=== PATIENT | female | born 1985 | race Caucasian/White ===

== ENCOUNTER 2016-11-07 21:22 | Emergency (ER) | payer OTHER ==
[2016-11-07 21:28] VITALS: RESP 18
--- NOTE | 2016-11-07 22:05 | ED ---
Back Pain HPI - General Chief Complaint: Back Pain/Injury Stated Complaint: Back Pain Time Seen by Provider: 11/07/16 21:51 Source: patient, RN notes reviewed Limitations: no limitations - History of Present Illness Initial Comments: This is a 31-year-old female who states she slipped on some stairs and fell down about 4 stairs 4 days ago when she was wearing slippery socks. She states she impacted the stairs with the right posterior aspect of her mid chest wall. She was seen in urgent care clinic placed on Naprosyn but it is not helping the pain. She also states she has increased pain with deep breathing it is somewhat short of breath. She does admit that she is a smoker. She denies any cough or phlegm production fevers chills sweats any other injuries no loss of function to her upper or lower extremities. Patient states that the pain is about 8-1/2/10 in severity in spite of her Naprosyn. MD Complaint: back pain, back injury, fall - Related Data Home Medications Medication Instructions Recorded Confirmed ALPRAZolam [Xanax] 0.5 mg PO TID PRN 11/07/16 11/07/16 ARIPiprazole [Abilify] 30 mg PO DAILY 11/07/16 11/07/16 Benztropine (Unknown Dose) 1 tab PO DAILY 11/07/16 11/07/16 Calcium Carbonate/Vitamin D3 1 tab PO DAILY 11/07/16 11/07/16 [Calcium 500-Vit D3 600 Tablet] Celexa (Unknown Dose) 1 tab PO DAILY 11/07/16 11/07/16 Levothyroxine Sodium [Synthroid] 125 mcg PO DAILY 11/07/16 11/07/16 Norgestimate-Ethinyl Estradiol 1 tab PO DAILY 11/07/16 11/07/16 [Sprintec 28 Day Tablet] Topiramate [Topamax] 50 mg PO BID 11/07/16 11/07/16 Previous Rx's Medication Instructions Recorded Cyclobenzaprine [Flexeril] 10 mg PO TID #14 tab 11/07/16 Hydrocodone/Acetaminophen [Rogers 1 each PO Q6HR PRN #20 tab 11/07/16 5-325] Allergies Allergy/AdvReac Type Severity Reaction Status Date / Time Penicillins Allergy Rash/Hives Verified 11/07/16 22:20 Sulfa (Sulfonamide Allergy Rash/Hives Verified 11/07/16 22:20 Antibiotics) codeine AdvReac Nausea & Verified 11/07/16 22:20 Vomiting Review of Systems ROS Statement: Those systems with pertinent positive or pertinent negative responses have been documented in the HPI. ROS Other: All systems not noted in ROS Statement are negative. Past Medical History Past Medical History: GERD/Reflux Additional Past Medical History / Comment(s): thyroid cancer. History of Any Multi-Drug Resistant Organisms: None Reported Additional Past Surgical History / Comment(s): thyroid Past Psychological History: Anxiety, Bipolar, Depression, PTSD Smoking Status: Current every day smoker Past Drug Use History: Marijuana General Exam - General Exam Comments Initial Comments: This is a well-developed well-nourished awake alert oriented 3 female demonstrate a [place] Coma Scale of 15 Limitations: no limitations General appearance: alert, anxious Head exam: Present: atraumatic, normocephalic, normal inspection Eye exam: Present: normal appearance, PERRL, EOMI. Absent: scleral icterus, conjunctival injection, periorbital swelling ENT exam: Present: normal exam, mucous membranes moist Neck exam: Present: normal inspection, full ROM. Absent: tenderness, meningismus, lymphadenopathy Respiratory exam: Present: normal lung sounds bilaterally, chest wall tenderness (There is palpation over the mid right posterior ribs with some ecchymosis noted over the same area. No spinous tenderness or spinous process tenderness no scapular tenderness. Decreased breath sounds with no definite step-off crepitation or evidence of pneumothorax.). Absent: respiratory distress, wheezes, rales, rhonchi, stridor Cardiovascular Exam: Present: regular rate, normal rhythm, normal heart sounds. Absent: systolic murmur, diastolic murmur, rubs, gallop, clicks GI/Abdominal exam: Present: soft, normal bowel sounds. Absent: distended, tenderness, guarding, rebound, rigid Extremities exam: Present: normal inspection, full ROM, normal capillary refill. Absent: tenderness, pedal edema, joint swelling, calf tenderness Back exam: Present: full ROM, other (As above). Absent: CVA tenderness (R), CVA tenderness (L), muscle spasm, paraspinal tenderness, vertebral tenderness Neurological exam: Present: alert, oriented X3, CN II-XII intact Psychiatric exam: Present: normal affect, normal mood Skin exam: Present: warm, dry, intact Course Vital Signs 11/07/16 21:24 Temperature 98.4 F Pulse Rate 66 Respiratory 18 Rate Blood Pressure 116/56 O2 Sat by Pulse 97 Oximetry - Reevaluation(s) Reevaluation #1: 11/07/16 22:05 We did discuss the risks of smoking and the need for cessation. Conversation lasted 3.1 minutes Medical Decision Making - Medical Decision Making Did discuss findings with the patient the presentation is consistent with bruised ribs/chest wall contusion patient will be placed on a different pain medication she states tramadol does not agree with her medications and placed on a short course of opiate pain medication as well as muscle relaxers. She can tolerate Vicodin and Rogers. - Radiology Data Radiology results: image reviewed (I did review the imaging and see no evidence of pneumothorax or fracture. Report is pending) Disposition Clinical Impression: Contusion of rib on right side, Chest wall contusion Disposition: HOME SELF-CARE Condition: Good Instructions: Rib Contusion (ED) Prescriptions: Cyclobenzaprine [Flexeril] 10 mg PO TID #14 tab Hydrocodone/Acetaminophen [Rogers 5-325] 1 each PO Q6HR PRN #20 tab PRN Reason: Pain
[2016-11-07 23:12] VITALS: BP 109/54; PULSE 60; TEMP 98.5
--- NOTE | 2016-11-07 23:28 | XR ---
EXAMINATION TYPE: XR ribs RT w pa chest xray DATE OF EXAM: 11/07/2016 10:13 PM COMPARISON: NONE HISTORY: Fell down the stairs. Chest pain. TECHNIQUE: 3 views FINDINGS: Heart and mediastinum are normal. Lungs are clear. There is no sign of pleural effusion or pneumothorax. The right ribs appear intact. IMPRESSION: Normal chest. Normal right ribs.
== END 2016-11-07 23:10 | disposition home or self-care (01) ==
LOC: EC 21:22
DX: S20.211A Contusion of right front wall of thorax, initial encounter (principal); F31.9 Bipolar disorder, unspecified; F17.200 Nicotine dependence, unspecified, uncomplicated; Z79.899 Other long term (current) drug therapy; Z79.3 Long term (current) use of hormonal contraceptives; Z88.0 Allergy status to penicillin; Z88.2 Allergy status to sulfonamides; Z88.5 Allergy status to narcotic agent; Z85.850 Personal history of malignant neoplasm of thyroid; Z98.890 Other specified postprocedural states; W10.9XXA Fall (on) (from) unspecified stairs and steps, initial encounter
CPT/HCPCS: 99283

== ENCOUNTER → 2017-10-21 | Outpatient (CLI) | payer OTHER ==
--- NOTE | 2017-10-21 12:53 | MR ---
EXAMINATION TYPE: MR brain and iac wo/w con DATE OF EXAM: 10/21/2017 COMPARISON: NONE HISTORY: Hearing Loss Left side TECHNIQUE: There is image degradation and limited exam secondary to motion artifact. Multiplanar, multisequence images of the brain and brainstem is performed without and with IV contras t, utilizing 8.5 mL intravenous Gadavist . FINDINGS: Diffusion weighted images demonstrate no evidence of a recent infarct or other diffusion ab normality. Changes of chronic sinusitis noted. Sella turcica has a normal appearance. Tiny subcentimeter Thornwa ldt cyst within the posterior nasopharynx. There is no cerebellopontine angle mass or acoustic schwannoma. Mastoid air cells are clear. The brain volume is age appropriate. Midline structures demonstrate normal morphology. The craniocervical junction appears within normal limits. Post contrast images demonstrate no abnormal enhancement. The dural venous sinuses appear pa tent. The visualized sinuses are clear and the globes are intact. IMPRESSION: Exam is limited by motion artifact. 1. No acute process. No cerebellopontine angle mass or acoustic schwannoma.
== END | disposition home or self-care (01) ==
LOC: RADMRIMAIN 10:20
PROVIDERS: ATTEND Otolaryngology Otolaryngic Allergy
DX: H91.8X2 Other specified hearing loss, left ear (principal)
CPT/HCPCS: 70553; A9581

== ENCOUNTER 2017-10-28 14:14 | Inpatient (IN) | payer MEDICAID, OTHER ==
--- NOTE | 2017-10-28 14:58 | ED ---
General Adult HPI - General Chief complaint: Psychiatric Symptoms Stated complaint: Mental Health Time Seen by Provider: 10/28/17 14:32 Source: patient, RN notes reviewed Mode of arrival: EMS Limitations: no limitations - History of Present Illness Initial comments: Patient's a 32-year-old female who presents emergency room today who is petitioned by the [employer]. Patient states that she was upset earlier today and was having thoughts for herself. She states her father called 911. She states she was holding a knife to her right forearm. She did not cut herself. She admits that she has a psychiatric history has been hospitalized in the past. She states that police brought her here to the hospital and petitioned her for psychiatric evaluation. Patient does admit that she did take some pills. She states not swollen she was also switched probably spit them out. Patient denies any recent fever, chills, shortness of breath, chest pain, back pain, abdominal pain, headaches or visual changes, or any other complaints. - Related Data Home Medications Medication Instructions Recorded Confirmed ALPRAZolam [Xanax] 0.5 mg PO BID PRN 11/07/16 10/28/17 ARIPiprazole [Abilify] 30 mg PO DAILY 11/07/16 11/07/16 Calcium Carbonate/Vitamin D3 1 tab PO DAILY 11/07/16 10/28/17 [Calcium 500-Vit D3 600 Tablet] Celexa (Unknown Dose) 1 tab PO DAILY 11/07/16 11/07/16 Levothyroxine Sodium [Synthroid] 125 mcg PO DAILY 11/07/16 11/07/16 Topiramate [Topamax] 50 mg PO BID 11/07/16 11/07/16 Gabapentin [Neurontin] 300 mg PO BID 10/28/17 10/28/17 Norgestimate-Ethinyl Estradiol 1 tab PO DAILY 10/28/17 10/28/17 [Ortho Tri-Cyclen 28 Tablet] Allergies Allergy/AdvReac Type Severity Reaction Status Date / Time aspartame Allergy Unknown Verified 10/28/17 14:46 Penicillins Allergy Rash/Hives Verified 10/28/17 14:46 red dye Allergy Unknown Verified 10/28/17 14:46 Sulfa (Sulfonamide Allergy Rash/Hives Verified 10/28/17 14:46 Antibiotics) codeine AdvReac Nausea & Verified 10/28/17 14:46 Vomiting Review of Systems ROS Statement: Those systems with pertinent positive or pertinent negative responses have been documented in the HPI. ROS Other: All systems not noted in ROS Statement are negative. Past Medical History Past Medical History: GERD/Reflux Additional Past Medical History / Comment(s): thyroid cancer. History of Any Multi-Drug Resistant Organisms: None Reported Additional Past Surgical History / Comment(s): thyroid Past Psychological History: Anxiety, Bipolar, Depression, PTSD Smoking Status: Current every day smoker Past Alcohol Use History: None Reported Past Drug Use History: Marijuana General Exam - General Exam Comments Initial Comments: General: The patient is awake and alert, in no distress, and does not appear acutely ill. Eye: Pupils are equal, round and reactive to light, extra-ocular movements are intact. No nystagmus. There is normal conjunctiva bilaterally. No signs of icterus. Ears, nose, mouth and throat: There are moist mucous membranes and no oral lesions. Neck: The neck is supple, there is no tenderness or JVD. Cardiovascular: There is a regular rate and rhythm. No murmur, rub or gallop is appreciated. Respiratory: Lungs are clear to auscultation, respirations are non-labored, breath sounds are equal. No wheezes, stridor, rales, or rhonchi. Musculoskeletal: Normal ROM, no tenderness. Strength 5/5. Sensation intact. Pulses equal bilaterally 2+. Neurological: A&O x 3. CN II-XII intact, There are no obvious motor or sensory deficits. Coordination appears grossly intact. Speech is normal. Skin: Skin is warm and dry and no rashes or lesions are noted. Psychiatric: Cooperative Limitations: no limitations Course Vital Signs 10/28/17 14:17 Temperature 99.0 F Pulse Rate 71 Respiratory 18 Rate Blood Pressure 128/81 O2 Sat by Pulse 100 Oximetry EKG Findings - EKG Comments: EKG Findings:: EKG performed at 1511: Shows normal sinus rhythm at 69 bpm. MN interval 120. QRS 82. QT/QTc 420/450. No acute ST changes. Medical Decision Making - Medical Decision Making Patient's been seen here in emergency room the recommend admission. Patient's x- ray reviewed and shows no acute cardiopulmonary process. From prior exam but suspected mold posterior lateral right sixth and seventh rib fractures. Patient does have tenderness over the right lateral aspect of the ribs. Patient does admit that she had an old rib fracture from possibly one year ago. Patient will be admitted for further psychiatric evaluation. - Lab Data Result diagrams: 10/28/17 15:02 10/28/17 15:02 Lab Results 10/28/17 10/28/17 10/28/17 Range/Units 15:02 15:02 15:02 WBC 16.4 H (3.8-10.6) k/uL RBC 4.78 (3.80-5.40) m/uL Hgb 15.4 (11.4-16.0) gm/dL Hct 46.1 H (34.0-46.0) % MCV 96.4 (80.0-100.0) fL MCH 32.1 (25.0-35.0) pg MCHC 33.3 (31.0-37.0) g/dL RDW 12.2 (11.5-15.5) % Plt Count 232 (150-450) k/uL Neutrophils % 82 % Lymphocytes % 11 % Monocytes % 5 % Eosinophils % 1 % Basophils % 0 % Neutrophils # 13.5 H (1.3-7.7) k/uL Lymphocytes # 1.8 (1.0-4.8) k/uL Monocytes # 0.9 (0-1.0) k/uL Eosinophils # 0.2 (0-0.7) k/uL Basophils # 0.0 (0-0.2) k/uL Sodium 144 (137-145) mmol/L Potassium 3.7 (3.5-5.1) mmol/L Chloride 112 H (98-107) mmol/L Carbon Dioxide 19 L (22-30) mmol/L Anion Gap 13 mmol/L BUN 11 (7-17) mg/dL Creatinine 0.90 (0.52-1.04) mg/dL Est GFR (CKD-EPI)AfAm >90 (>60 ml/min/1.73 sqM) Est GFR (CKD-EPI)NonAf 85 (>60 ml/min/1.73 sqM) Glucose 77 (74-99) mg/dL Calcium 9.7 (8.4-10.2) mg/dL Salicylates <1.0 mg/dL Urine Opiates Screen Not Detected (NotDetected) Ur Oxycodone Screen Not Detected (NotDetected) Urine Methadone Screen Not Detected (NotDetected) Ur Propoxyphene Screen Not Detected (NotDetected) Acetaminophen <10.0 ug/mL Ur Barbiturates Screen Not Detected (NotDetected) U Tricyclic Antidepress Not Detected (NotDetected) Ur Phencyclidine Scrn Not Detected (NotDetected) Ur Amphetamines Screen Not Detected (NotDetected) U Methamphetamines Scrn Not Detected (NotDetected) U Benzodiazepines Scrn Not Detected (NotDetected) Urine Cocaine Screen Not Detected (NotDetected) U Marijuana (THC) Screen Detected H (NotDetected) Disposition Clinical Impression: Suicidal ideation Disposition: TRANSFER TO PSYCH HOSP/UNIT Referrals: Flip Garcia MD [Primary Care Provider] - 1-2 days
[2017-10-28 15:11] LABS: Basophils % (A) 0 %; Eosinophils # (A) 0.2 k/uL (0-0.7); Eosinophils % (A) 1 %; HCT 46.1 % (34.0-46.0); HGB 15.4 gm/dL (11.4-16.0); Lymphocytes # (A) 1.8 k/uL (1.0-4.8); Lymphocytes % (A) 11 %; MCH 32.1 pg (25.0-35.0); MCHC 33.3 g/dL (31.0-37.0); MCV 96.4 fL (80.0-100.0); Mean Platelet Volume 8.1; Monocytes # (A) 0.9 k/uL (0-1.0); Monocytes % (A) 5 %; Neutrophils # (A) 13.5 k/uL (1.3-7.7); Neutrophils % (A) 82 %; Platelet Count 232 k/uL (150-450); RBC 4.78 m/uL (3.80-5.40); RDW 12.2 % (11.5-15.5); WBC 16.4 k/uL (3.8-10.6)
[2017-10-28 15:25] LABS: Acetaminophen <10.0 ug/mL; Anion Gap 13 mmol/L; Blood Urea Nitrogen 11 mg/dL (7-17); Calcium 9.7 mg/dL (8.4-10.2); Carbon Dioxide 19 mmol/L (22-30); Chloride 112 mmol/L (98-107); Glucose 77 mg/dL (74-99); Potassium 3.7 mmol/L (3.5-5.1); Salicylate <1.0 mg/dL; Sodium 144 mmol/L (137-145)
[2017-10-28 15:32] LABS: Amphetamine Screen,Urine Not Detected (NotDetected); Barbiturate Screen,Urine Not Detected (NotDetected); Benzodiazepines Screen,Urine Not Detected (NotDetected); Cocaine Screen,Urine Not Detected (NotDetected); Methadone Screen, Urine Not Detected (NotDetected); Opiate Screen,Urine Not Detected (NotDetected); Oxycodone Screen, Urine Not Detected (NotDetected); Phencyclidine Screen,Urine Not Detected (NotDetected); Tricyclic Antidepressant,Urine Not Detected (NotDetected); Urn Cannabinoid Scrn Detected (NotDetected)
[2017-10-28] MEDS ORDERED: LORazepam 1 MG TAB PO STA ×2 (15:40→17:38)
--- NOTE | 2017-10-28 18:16 | XR ---
EXAMINATION TYPE: XR chest 2V DATE OF EXAM: 10/28/2017 COMPARISON: Chest x-ray from November 07, 2016. HISTORY: Right anterior rib pain. TECHNIQUE: Frontal and lateral views of the chest are obtained. FINDINGS: There is no focal air space opacity, pleural effusion, or pneumothorax seen. The cardiac silhouette size is within normal limits. There are posterior fracture deformities right sixth and sev enth ribs new from prior exam but suspected old in age. IMPRESSION: No acute cardiopulmonary process. New from prior exam but suspected old posterior latera l right sixth and seventh rib fractures. Correlate clinically.
[2017-10-28] MEDS ORDERED: ACETAMINOPHEN TAB 500 MG TAB PO STA (18:32)
[2017-10-28] MEDS ORDERED: ACETAMINOPHEN TAB 325 MG TAB PO PRN (18:49)
[2017-10-28] MEDS ORDERED: MAGNESIUM HYDROXIDE 2,400 MG/10 ML CUP PO PRN (18:49)
[2017-10-28] MEDS ORDERED: MAG HYDROX/AL HYDROX/SIMETH 30 ML CUP PO PRN (18:49)
[2017-10-28] MEDS ORDERED: LORazepam 2 MG/ML INJ IM PRN (18:57)
[2017-10-28 19:18] LABS: Appearance,Urine Cloudy (Clear); Bacteria,Urine Occasional /hpf; Bilirubin,Urine Negative (Negative); Blood,Urine Negative (Negative); Color,Urine Yellow; Glucose,Urine (UA) Negative (Negative); Hyaline Casts,Urine 6 /lpf (0-2); Ketones,Urine Negative (Negative); Leukocyte Esterase,Urine Negative (Negative); Mucus,Urine Rare /hpf; Nitrite,Urine Negative (Negative); PH, Urine 5.5 (5.0-8.0); Protein,Urine Negative (Negative); Specific Gravity,Urine 1.008 (1.001-1.035); Squamous Epithelial Cell,Urine 20 /hpf (0-4); Urobilinogen,Urine <2.0 mg/dL (<2.0); WBC,Urine 1 /hpf (0-5)
[2017-10-28 19:30] VITALS: RESP 16
[2017-10-28] MEDS: ARIPiprazole 10 MG TAB PO SCH (20:02)
[2017-10-29] MEDS: LORazepam 1 MG TAB PO PRN ×2 (06:38→16:06)
[2017-10-29] MEDS: IBUPROFEN 400 MG TAB PO PRN ×2 (06:39→18:24)
[2017-10-29] MEDS ORDERED: ZIPRASIDONE 20 MG VIAL IM ONE ×3 (09:27→18:28)
[2017-10-29] MEDS: ZIPRASIDONE 20 MG VIAL IM PRN ×2 (09:28→18:28)
[2017-10-29] MEDS: NICOTINE 14MG/24HR PATCH TRANSDERM SCH ×2 (09:52→16:05)
[2017-10-29] MEDS: ARIPiprazole 10 MG TAB PO SCH ×2 (09:52→16:05)
[2017-10-29] MEDS: CALCIUM CARB-VIT D 500MG-200UN 1 EACH TAB PO SCH ×2 (09:52→16:05)
[2017-10-29] MEDS: NORGESTIMATE ETHINYL ESTRADIOL PO SCH (09:53)
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
--- NOTE | 2017-10-29 16:45 | P.CONS ---
History of Present Illness - Reason for Consult Recommendations regarding thyroid medications - History of Present Illness 32-year-old is admitted to psychiatric floor for suicidal ideation. Patient is tearful crying hitting her rib cage so that she doesn't need to stay in the psychiatric floor either can go home are can be admitted to medical floor. Patient had history of thyroidectomy with highly elevated TSH patient says she does take Thyroid medication a regular basis. She is complaining severe pain in the right rib cage area. Patient had a chest x-ray did show rib fractures which appears to be older. Patient does have leukocytosis which is which may be reactive due to stress doesn't have any signs or symptoms of infection he is essentially within normal lives chest x-ray did not show any pneumonic process. Review of Systems REVIEW OF SYSTEMS: CONSTITUTIONAL: No fever, no malaise, no fatigue. HEENT: No recent visual problems or hearing problems. Denied any sore throat. CARDIOVASCULAR: No chest pain, orthopnea, PND, no palpitations, no syncope. PULMONARY: No shortness of breath, no cough, no hemoptysis. Complain of pain in the rib cage area GASTROINTESTINAL: No diarrhea, no nausea, no vomiting, no abdominal pain. Normoactive bowel sounds. NEUROLOGICAL: No headaches, no weakness, no numbness. HEMATOLOGICAL: Denies any bleeding or petechiae. GENITOURINARY: Denies any burning micturition, frequency, or urgency. MUSCULOSKELETAL/RHEUMATOLOGICAL: Denies any joint pain, swelling, or any muscle pain. ENDOCRINE: Denies any polyuria or polydipsia. The rest of the 14-point review of systems is negative. Past Medical History Past Medical History: GERD/Reflux Additional Past Medical History / Comment(s): thyroid cancer. History of Any Multi-Drug Resistant Organisms: None Reported Additional Past Surgical History / Comment(s): thyroid Past Psychological History: Anxiety, Bipolar, Depression, PTSD Smoking Status: Current every day smoker Past Alcohol Use History: None Reported Past Drug Use History: Marijuana Medications and Allergies Home Medications Medication Instructions Recorded Confirmed Type ALPRAZolam [Xanax] 0.5 mg PO BID PRN 11/07/16 10/28/17 History ARIPiprazole [Abilify] 30 mg PO DAILY 11/07/16 11/07/16 History Calcium Carbonate/Vitamin D3 1 tab PO DAILY 11/07/16 10/28/17 History [Calcium 500-Vit D3 600 Tablet] Celexa (Unknown Dose) 1 tab PO DAILY 11/07/16 11/07/16 History Levothyroxine Sodium [Synthroid] 125 mcg PO DAILY 11/07/16 11/07/16 History Topiramate [Topamax] 50 mg PO BID 11/07/16 11/07/16 History Gabapentin [Neurontin] 300 mg PO BID 10/28/17 10/28/17 History Norgestimate-Ethinyl Estradiol 1 tab PO DAILY 10/28/17 10/28/17 History [Ortho Tri-Cyclen 28 Tablet] Allergies Allergy/AdvReac Type Severity Reaction Status Date / Time aspartame Allergy Unknown Verified 10/28/17 14:46 Penicillins Allergy Rash/Hives Verified 10/28/17 14:46 red dye Allergy Unknown Verified 10/28/17 14:46 Sulfa (Sulfonamide Allergy Rash/Hives Verified 10/28/17 14:46 Antibiotics) codeine AdvReac Nausea & Verified 10/28/17 14:46 Vomiting Physical Exam Vitals: Vital Signs Temp Pulse Pulse Resp BP BP Pulse Ox 10/29/17 06:18 98.5 F 67 16 112/59 10/28/17 19:29 103 H 16 146/76 100 10/28/17 19:14 97.8 F 67 18 129/57 98 Intake and Output 10/29/17 10/29/17 10/29/17 06:59 14:59 22:59 Other: Weight 84.5 kg PHYSICAL EXAMINATION: GENERAL: The patient is alert and oriented x3, not in any acute distress. Well developed, well nourished. HEENT: Pupils are round and equally reacting to light. EOMI. No scleral icterus. No conjunctival pallor. Normocephalic, atraumatic. No pharyngeal erythema. No thyromegaly. CARDIOVASCULAR: S1 and S2 present. No murmurs, rubs, or gallops. PULMONARY: Chest is clear to auscultation, no wheezing or crackles. There is mild tenderness upon palpation of posterior right rib cage area ABDOMEN: Soft, nontender, nondistended, normoactive bowel sounds. No palpable organomegaly. MUSCULOSKELETAL: No joint swelling or deformity. EXTREMITIES: No cyanosis, clubbing, or pedal edema. NEUROLOGICAL: Gross neurological examination did not reveal any focal deficits. SKIN: No rashes. Results CBC & Chem 7: 10/28/17 15:02 10/28/17 15:02 Labs: Abnormal Lab Results - Last 24 Hours (Table) 10/28/17 10/28/17 Range/Units 15:02 15:22 TSH 12.700 H (0.465-4.680) mIU/L Urine Appearance Cloudy H (Clear) Ur Squamous Epith Cells 20 H (0-4) /hpf Urine Bacteria Occasional H (None) /hpf Hyaline Casts 6 H (0-2) /lpf Urine Mucus Rare H (None) /hpf Microbiology - Last 24 Hours (Table) 10/28/17 15:22 Urine Culture - Preliminary Urine,Clean Catch Assessment and Plan Plan: -Hypothyroidism: Unsure whether patient is competent are not patient had history of thyroid cancer post total thyroidectomy normally these patients will require high dose of thyroid medication because of which counseling that patient is compliant with her medication or increase the dose of levothyroxine to 175 g. --Right rib fractures appear to be older patient may have incited recurrent injury patient is already on appropriate medications for that which is nonsteroidal anti-inflammatories because of uncontrolled pain from that counseling was provided not to hit her rib cage again and patient will be given tramadol as well but as this is also a nonsteroidal anti-inflammatory should be continued on long-term basis. -Gastroesophageal reflux disease patient was started on Pepcid because of nonsteroidal anti-inflammatory is she is taking. -Nicotine use and marijuana use
[2017-10-29] MEDS: GABAPENTIN 300 MG CAP PO SCH (21:11)
[2017-10-29] MEDS: FAMOTIDINE 20 MG TAB PO SCH (21:11)
[2017-10-29] MEDS: traMADol 50 MG TAB PO SCH (21:11)
[2017-10-30] MEDS: LEVOTHYROXINE 88 MCG TAB PO SCH (05:40)
[2017-10-30] MEDS: NICOTINE 14MG/24HR PATCH TRANSDERM SCH (08:18)
[2017-10-30] MEDS: FAMOTIDINE 20 MG TAB PO SCH ×2 (08:18→21:10)
[2017-10-30] MEDS: ARIPiprazole 10 MG TAB PO SCH (08:18)
[2017-10-30] MEDS: LORazepam 1 MG TAB PO PRN (08:18)
[2017-10-30] MEDS: CALCIUM CARB-VIT D 500MG-200UN 1 EACH TAB PO SCH (08:18)
[2017-10-30] MEDS: GABAPENTIN 300 MG CAP PO SCH ×2 (08:18→21:10)
[2017-10-30] MEDS: traMADol 50 MG TAB PO SCH ×3 (08:19→21:10)
[2017-10-30] MEDS: NORGESTIMATE ETHINYL ESTRADIOL PO SCH ×2 (08:53→11:26)
[2017-10-30] MEDS ORDERED: LEVOTHYROXINE 125 MCG TAB PO SCH (09:00)
[2017-10-30 09:28] LABS: HCT 45.1 % (34.0-46.0); HGB 14.8 gm/dL (11.4-16.0); MCH 32.1 pg (25.0-35.0); MCHC 32.8 g/dL (31.0-37.0); MCV 97.7 fL (80.0-100.0); Mean Platelet Volume 7.9; Platelet Count 283 k/uL (150-450); RBC 4.61 m/uL (3.80-5.40); RDW 12.3 % (11.5-15.5); WBC 10.6 k/uL (3.8-10.6)
[2017-10-30 09:46] LABS: Calcium 9.5 mg/dL (8.4-10.2); Potassium 4.3 mmol/L (3.5-5.1)
[2017-10-30] MEDS: CHOLECALCIFEROL 1,000 UNIT TAB PO SCH (11:26)
[2017-10-30] MEDS ORDERED: LORazepam 0.5 MG TAB PO PRN (11:28)
[2017-10-30] MEDS ORDERED: ARIPiprazole 400 MG VIAL (NO CHARGE) IM ONE (12:00)
--- NOTE | 2017-10-30 13:25 | P.PN ---
Progress Note - Text Progress Note Date: 10/30/17 Interval History: Patient is a 32-year-old female who was seen today. Patient reports that she was having bad thoughts that tell her to do things prior to coming into the hospital. She states she does not think she had been taking her Abilify. She states the bad thoughts tell her to hurt others and herself. She reports no auditory hallucinations and refers to these as bad thoughts. Patient states when she was taking the Abilify the bad thoughts go away and she states that she does quite well when she is on here patient was also taking Topamax and Celexa. She states she used the Xanax infrequently. Patient reports no longer having bad thoughts, still becomes tearful when asking when she can be discharged. Patient states that she did sleep last evening. Patient states that she is still anxious and needs something to calm her nerves. Mental Status: Appearance/Attitude: Patient is appropriately dressed, makes eye contact and was cooperative. Behavior: Patient did not display any psychomotor agitation or retardation, becoming tearful throughout the interview when discussing her discharge Speech/Language: Patient's speech was spontaneous of normal volume and rhythm and she was coherent Thought Process: Patient is goal-directed there is no evidence of loose association or flight of ideas. Thought Content: Patient denies auditory or visual hallucination and describes having bad thoughts that tell her to hurt herself or others. She states that she was hearing these when she took the overdose at home. She states they have decreased in intensity since her restart of Abilify in the hospital. Patient states that Abilify in the past has worked well for her. She reports sleeping and eating well. Suicidal/Homicidal Ideation: Patient denies any current suicidal or homicidal ideation Sensorium/Cognition: Patient is alert and oriented to person, place, and time and her recent and remote memory are grossly intact Mood/Affect: Patient's mood is labile, her affect is appropriate to her mood Insight/Judgment: Patient's insight and judgment are fair Assessment: Patient was able to sit and cooperate during the interview, she did become tearful when requesting discharge. Patient and I discussed her response to Abilify in the past which she states had been good and we discussed the medication as well as the use of long-acting injectable Abilify which the patient was agreeable to try. Patient and I discussed not restarting the Topamax her Celexa to see if the Abilify on its own would be enough of a mood stabilizer. Patient reports her bad thoughts have decreased and she is no longer feeling suicidal. Patient states that she is anxious and we reviewed her use of Xanax as an outpatient. Patient has been attending groups and activities. She apologized for her behavior with me yesterday and has not had any further outbursts today. Plan: Patient Abilify will be increased to 20 mg a day and she will receive Abilify Maintenna 300 mg IM today and I discussed with her the need to stay on oral medication for 14 days after the injection. Patient was agreeable to this I will decrease her Ativan to 0.5 mg on an as-needed basis orally and we discussed trying Vistaril 25 mg every 6 hours as needed for her complaints of anxiety. I discussed not restarting Topamax and Celexa to see if the Abilify would stabilize her mood sufficiently. She was agreeable to this plan. Patient continues to require hospitalization to further stabilize her mood.
[2017-10-30] MEDS: IBUPROFEN 400 MG TAB PO PRN (13:30)
[2017-10-30] MEDS: hydrOXYzine PAMOATE 25 MG CAP PO PRN (14:19)
[2017-10-31] MEDS: IBUPROFEN 400 MG TAB PO PRN (04:39)
[2017-10-31] MEDS: LEVOTHYROXINE 88 MCG TAB PO SCH (05:43)
[2017-10-31 06:39] VITALS: TEMP 98.1
[2017-10-31] MEDS: traMADol 50 MG TAB PO SCH (08:25)
[2017-10-31] MEDS: CALCIUM CARB-VIT D 500MG-200UN 1 EACH TAB PO SCH (08:27)
[2017-10-31] MEDS: NICOTINE 14MG/24HR PATCH TRANSDERM SCH (08:27)
[2017-10-31] MEDS: GABAPENTIN 300 MG CAP PO SCH ×2 (08:27→21:41)
[2017-10-31] MEDS: FAMOTIDINE 20 MG TAB PO SCH ×2 (08:27→21:41)
[2017-10-31] MEDS: NORGESTIMATE ETHINYL ESTRADIOL PO SCH (09:17)
[2017-10-31] MEDS: IBUPROFEN 600 MG TAB PO PRN ×2 (11:31→19:47)
[2017-10-31] MEDS: CHOLECALCIFEROL 1,000 UNIT TAB PO SCH (11:31)
--- NOTE | 2017-10-31 12:24 | P.PN ---
Progress Note - Text Progress Note Date: 10/31/17 Interval History: Patient is a 32-year-old female who was seen today, she reports feeling much better stated that she had written a list of goals for herself for today. Patient states that she is no longer having thoughts to herself or anyone else. She states that her tearful episodes have decreased. She reports sleeping well last evening. Patient continues to complain of some rib discomfort but states that she knows that after the last time she broke her ribs that it took a while for the pain to go away. Patient reported relief using Vistaril for her anxiety yesterday. She reports no side effects from the Abilify. Patient feels that her mood is much more stable Mental Status: Appearance/Attitude: Patient is appropriately dressed, makes good eye contact and was cooperative. Behavior: Patient did not exhibit any psychomotor agitation or retardation and was only tearful on several occasions during the interview Speech/Language: Patient was spontaneous speech is of normal volume and rhythm and she was coherent. Thought Process: Patient was goal-directed there was no evidence of loose association or flight of ideas. Thought Content: Patient denied auditory or visual hallucinations and states that the bad thoughts to herself or others are no longer there. No other delusional or paranoid ideation was elicited. Patient states that she is sleeping and eating well. She states that she is feeling more stable, less frequent crying episodes. She stated she made goals today for herself to be more positive and states that she has learned some new coping skills in groups. Suicidal/Homicidal Ideation: Patient denies any current suicidal or homicidal ideation. Sensorium/Cognition: Patient is alert and oriented to person, place, and time and her recent and remote memory are grossly intact. Mood/Affect: patient's mood is less labile, she was tearful only on several occasions today and her affect is more appropriate Insight/Judgment: patient's insight and judgment are improving Assessment: Patient states that she deferred her hearing yesterday, states that she feels much better on the Abilify, the dad thoughts have disappeared and her mood is more stable. She and I discussed her use of marijuana and the need to stop, she stated her parents called her and told her that if she did not stop they would move away and have no further contact with her. Patient stated that this was a great motivation for her to stop and we also discussed concerns regarding her partner who does use marijuana. Patient reported that she was learning new coping skills here and was open to a referral for therapy [facility]. Patient reported no side effects from the Abilify. I encouraged the patient to continue to try the Vistaril for her anxiety versus using the Ativan. Plan: patient will continue on Abilify 20 mg for a total of 14 days after having received Abilify Maintenna 300 mg yesterday. Patient will have her tramadol changed to on an as-needed basis, her Motrin dose was increased as well as the frequency to use on an as-needed basis for her rib pain. Patient was also encouraged to try to use the Vistaril versus the Ativan for her anxiety. Patient and I discussed a discharge tomorrow. In team treatment meeting I recommended that continue mental health refer her for DBT/CBT to improve the patient's coping strategies. Patient was agreeable with discharge tomorrow.
[2017-10-31] MEDS: hydrOXYzine PAMOATE 25 MG CAP PO PRN (15:27)
[2017-10-31] MEDS: traMADol 50 MG TAB PO PRN (15:35)
[2017-11-01] MEDS: traMADol 50 MG TAB PO PRN ×2 (00:05→08:31)
[2017-11-01 01:33] VITALS: BP 122/75; PULSE 68
[2017-11-01] MEDS: LEVOTHYROXINE 88 MCG TAB PO SCH (06:21)
[2017-11-01] MEDS: IBUPROFEN 600 MG TAB PO PRN (06:54)
[2017-11-01] MEDS: CALCIUM CARB-VIT D 500MG-200UN 1 EACH TAB PO SCH (08:26)
[2017-11-01] MEDS: FAMOTIDINE 20 MG TAB PO SCH (08:26)
[2017-11-01] MEDS: NICOTINE 14MG/24HR PATCH TRANSDERM SCH (08:26)
[2017-11-01] MEDS: GABAPENTIN 300 MG CAP PO SCH (08:26)
[2017-11-01] MEDS: NORGESTIMATE ETHINYL ESTRADIOL PO SCH (08:26)
--- NOTE | 2017-11-01 09:58 | P.DS ---
Providers Date of admission: 10/28/17 18:46 Expected date of discharge: 11/01/17 Attending physician: Skylar Andres MD Consults: 10/28/17 18:49 Consult Physician Routine Consulting Provider: Angel Aragon Consult Reason/Comments: H&P, with medical follow up Do you want consulting provider notified?: Yes, Notify in am Primary care physician: Flip [facility] Course: Discharge Diagnosis: Schizoaffective disorder, bipolar type Reason for Admission: Patient is a 32-year-old female who was brought in by the police after taking an overdose of pills and attempting to cut her wrists with a knife. Patient states that she took an overdose of pills, her Neurontin because she and her were arguing and she felt out of control and stated that the only way to control herself was to take an overdose of pills. Patient states the police were called by her father. Patient states she also had a knife and was going to cut her wrists. Patient states that she told the police to "get the fuck out of my house". She states that she threw an ashtray at the end that they tased her. Patient states that she's been taking her medications that are controlled by her but does not know the dose of her medication. She stated that she's been taking Topamax as a mood stabilizer, an unknown dose of Abilify and unknown dose of Celexa and is on Neurontin for fibromyalgia and Xanax that she usually takes 1-2 a day. Patient states that she seen by [facility] and last saw the psychiatrist in August and saw her saddle maker in early October. She states that those times she had been compliant with her medication and was not having any symptoms. Patient states that she is hearing voices that are telling her to get out of her here, to go to the doors to get out of here and scratch on the doors until her fingers bleed to get out. She states that she is hearing voices telling her to hurt me unless I let her out. She states that she feels paranoid because I'm trying to hurt her and the reason would be "for glee" because I'm sick and twisted. She states her father is an idiot because he called the police. Patient intermittently during the interview would begin crying hysterically pleading to leave the hospital stating that she was suicidal yesterday but isn' t today and doesn't need to be here. Patient when I would tell her that she was not leaving today become angry using profanity, swearing at me to let her leave. Patient was a difficult historian as she would not answer most questions with any elaborative history stating that she doesn't know how long she's been treated and has been diagnosed with bipolar disorder, anxiety and schizophrenia. Patient was unable to tell me any current symptoms other than that she had been in an argument yesterday and was suicidal to control her out- of-control behavior. Patient states that she is attempted suicide 3 times in the past for cutting herself and overdosing. Mental status on Admission: Appearance/Attitude: Patient is dressed in a hospital gown, makes intermittent eye contact and is superficially cooperative Behavior: Patient did not display any psychomotor retardation throughout the interview she would have episodes where she begin crying hysterically demanding to be discharged, pleading to be discharged at one point lying on the floor and grabbing my ankles pleading to be discharged, when she was told that this would not occur the patient would become angry using profanity Speech/Language: Patient's speech was spontaneous, normal volume and rhythm and she was coherent Thought Process: Patient was goal-directed but not elaborative on her responses , mostly focused on pleading for her discharge. There is no evidence of loose association or flight of ideas Thought Content: Patient reported that she was hearing voices telling her to get out of the hospital, to hurt me if I didn't let her leave and denied any visual hallucinations. Patient states that she was paranoid because she felt I was trying to hurt her for glee because I was sick and twisted. Patient did not appear to be responding to internal stimuli. Patient states that she took the overdose at home because she was arguing with her and felt out of control and that was the only way to get in control. Suicidal/Homicidal Ideation: Patient states that she is not currently suicidal, she took the overdose as stated above and tried to cut her wrists yesterday she denied any current homicidal ideation Sensorium/Cognition: Patient is alert and oriented to person, place, and time and her recent and remote memory are grossly intact Mood/Affect: Patient's mood is labile, with episodes of anger and profanity and her affect is appropriate to her mood Insight/Judgment: Patient's insight and judgment are limited Hospital Course: Patient was admitted on an involuntary basis, routine observation was ordered as well as group and activity therapy. Patient had routine laboratory studies and a medical consultation. Patient was continued on her medications for her medical problems and due to an elevated TSH her Synthroid dose was increased. Patient was begun on Abilify at 10 mg and titrated to a maximum dose of 20 mg. Her Topamax and Celexa were discontinued. Patient required IM medication initially, was taking her Abilify orally. Patient became more cooperative, less angry and no further episodes of verbally abusive behavior. Patient began to attend groups and activities and participated appropriately. Patient and I discussed long-acting Abilify and she was agreeable to this. Patient also deferred her hearing. Patient was given Abilify 300 mg long-acting injection on October 30. Patient reports that she was no longer having bad thoughts telling her to hurt herself or others, she was sleeping. For the patient's pain secondary to being tased she was placed on Motrin and tramadol. Patient reported that her pain was improving but continues to complain of right rib pain in an area where she had injured her ribs in the past. Patient continued to improve, her behavior was appropriate, she reported no further bad thoughts to harm people or others and was no longer feeling suicidal. She and I had discussed her use of marijuana and she stated that her parents told her that if she returned to using they would move away from her and not have any contact with her. Patient felt that she would be able to return to live with her partner and remain sober from marijuana. Patient reported no side effects from the Abilify. Allergies aspartame Allergy (Verified 10/28/17 14:46) Unknown Penicillins Allergy (Verified 10/28/17 14:46) Rash/Hives red dye Allergy (Verified 10/28/17 14:46) Unknown Sulfa (Sulfonamide Antibiotics) Allergy (Verified 10/28/17 14:46) Rash/Hives codeine Adverse Reaction (Verified 10/28/17 14:46) Nausea & Vomiting Laboratory Last Values WBC 10.6 k/uL (3.8-10.6) 10/30/17 08:42 RBC 4.61 m/uL (3.80-5.40) 10/30/17 08:42 Hgb 14.8 gm/dL (11.4-16.0) 10/30/17 08:42 Hct 45.1 % (34.0-46.0) 10/30/17 08:42 MCV 97.7 fL (80.0-100.0) 10/30/17 08:42 MCH 32.1 pg (25.0-35.0) 10/30/17 08:42 MCHC 32.8 g/dL (31.0-37.0) 10/30/17 08:42 RDW 12.3 % (11.5-15.5) 10/30/17 08:42 Plt Count 283 k/uL (150-450) 10/30/17 08:42 Neutrophils % 82 % 10/28/17 15:02 Lymphocytes % 11 % 10/28/17 15:02 Monocytes % 5 % 10/28/17 15:02 Eosinophils % 1 % 10/28/17 15:02 Basophils % 0 % 10/28/17 15:02 Neutrophils # 13.5 k/uL (1.3-7.7) H 10/28/17 15:02 Lymphocytes # 1.8 k/uL (1.0-4.8) 10/28/17 15:02 Monocytes # 0.9 k/uL (0-1.0) 10/28/17 15:02 Eosinophils # 0.2 k/uL (0-0.7) 10/28/17 15:02 Basophils # 0.0 k/uL (0-0.2) 10/28/17 15:02 Sodium 143 mmol/L (137-145) 10/30/17 08:42 Potassium 4.3 mmol/L (3.5-5.1) 10/30/17 08:42 Chloride 106 mmol/L (98-107) 10/30/17 08:42 Carbon Dioxide 25 mmol/L (22-30) 10/30/17 08:42 Anion Gap 12 mmol/L 10/30/17 08:42 BUN 14 mg/dL (7-17) 10/30/17 08:42 Creatinine 1.04 mg/dL (0.52-1.04) 10/30/17 08:42 Est GFR (CKD-EPI)AfAm 83 (>60 ml/min/1.73 sqM) 10/30/17 08:42 Est GFR (CKD-EPI)NonAf 72 (>60 ml/min/1.73 sqM) 10/30/17 08:42 Glucose 107 mg/dL (74-99) H 10/30/17 08:42 Calcium 9.5 mg/dL (8.4-10.2) 10/30/17 08:42 TSH 12.700 mIU/L (0.465-4.680) H 10/28/17 15:02 Urine Color Yellow 10/28/17 15:22 Urine Appearance Cloudy (Clear) H 10/28/17 15:22 Urine pH 5.5 (5.0-8.0) 10/28/17 15:22 Ur Specific [place] 1.008 (1.001-1.035) 10/28/17 15:22 Urine Protein Negative (Negative) 10/28/17 15:22 Urine Glucose (UA) Negative (Negative) 10/28/17 15:22 Urine Ketones Negative (Negative) 10/28/17 15:22 Urine Blood Negative (Negative) 10/28/17 15:22 Urine Nitrite Negative (Negative) 10/28/17 15:22 Urine Bilirubin Negative (Negative) 10/28/17 15:22 Urine Urobilinogen <2.0 mg/dL (<2.0) 10/28/17 15:22 Ur Leukocyte Esterase Negative (Negative) 10/28/17 15:22 Urine WBC 1 /hpf (0-5) 10/28/17 15:22 Ur Squamous Epith Cells 20 /hpf (0-4) H 10/28/17 15:22 Urine Bacteria Occasional /hpf (None) H 10/28/17 15:22 Hyaline Casts 6 /lpf (0-2) H 10/28/17 15:22 Urine Mucus Rare /hpf (None) H 10/28/17 15:22 Urine HCG, Qual Not Detected (Not Detectd) 10/28/17 15:22 Salicylates <1.0 mg/dL 10/28/17 15:02 Urine Opiates Screen Not Detected (NotDetected) 10/28/17 15:02 Ur Oxycodone Screen Not Detected (NotDetected) 10/28/17 15:02 Urine Methadone Screen Not Detected (NotDetected) 10/28/17 15:02 Ur Propoxyphene Screen Not Detected (NotDetected) 10/28/17 15:02 Acetaminophen <10.0 ug/mL 10/28/17 15:02 Ur Barbiturates Screen Not Detected (NotDetected) 10/28/17 15:02 U Tricyclic Antidepress Not Detected (NotDetected) 10/28/17 15:02 Ur Phencyclidine Scrn Not Detected (NotDetected) 10/28/17 15:02 Ur Amphetamines Screen Not Detected (NotDetected) 10/28/17 15:02 U Methamphetamines Scrn Not Detected (NotDetected) 10/28/17 15:02 U Benzodiazepines Scrn Not Detected (NotDetected) 10/28/17 15:02 Urine Cocaine Screen Not Detected (NotDetected) 10/28/17 15:02 U Marijuana (THC) Screen Detected (NotDetected) H 10/28/17 15:02 Discharge Mental Status: Appearance/Attitude: Patient was casually dressed, made good eye contact and was cooperative. Behavior: Patient did not display any psychomotor agitation or retardation. Speech/Language: Patient's speech was spontaneous of normal volume and rhythm and she was coherent. Thought Process: Patient was goal-directed there is no evidence of loose associations or flight of ideas. Thought Content: Patient denied any auditory or visual hallucinations and stated she was no longer having bad thoughts telling her to hurt herself or others. Patient behavior was in better control and she felt that her mood was much more stable. She reported that she was sleeping and eating well. Patient discussed learning new coping skills in the groups and stated that she was trying to focus on positive things. Patient also stated that she was planning to discontinue her use of marijuana. Suicidal/Homicidal Ideation: Patient denied any current suicidal or homicidal ideation. Sensorium/Cognition: Patient was alert and oriented to person, place, and time and her recent and remote memory were grossly intact. Mood/Affect: Patient's mood was much more stable, there were no episodes of tearfulness or crying today and her affect was appropriate Insight/Judgment: Patient's insight and judgment are adequate Risk Assessment: Patient's risk for self harm is moderate should she be noncompliant, return to using drugs Discharge Plan: Patient will return to live with her partner, she will follow- up with [facility], patient will continue on Abilify 20 mg until November 13. Patient next injection of Abilify Maintenna 300 mg is due on November 27. Patient will also continue on Vistaril 25 mg every 6 hours when necessary for anxiety. Patient will be given prescriptions for both Pepcid and Motrin as well as for the increased dose of Synthroid. Patient has sufficient Neurontin, calcium, vitamin D3 and will continue on her control pills. Patient was encouraged to be compliant with medication, become compliant with follow-up appointments. Patient was encouraged to avoid any alcohol or drugs and she will discontinue her use of Xanax. Patient also will be given a prescription for a repeat TSH in one month. Patient Condition at Discharge: Stable Plan - Discharge Summary New Discharge Prescriptions: New ARIPiprazole [Abilify] 20 mg PO DAILY #12 tab ARIPiprazole [Abilify Maintena] 300 mg IM QMONTH #1 vial Famotidine [Pepcid] 20 mg PO BID #28 tab hydrOXYzine PAMOATE [Vistaril] 25 mg PO Q6HR PRN #56 cap PRN Reason: Anxiety Ibuprofen [Motrin] 600 mg PO QID PRN #56 tab PRN Reason: Pain Levothyroxine Sodium [Synthroid] 176 mcg PO DAILY@0630 #56 tab Continue Calcium Carbonate/Vitamin D3 [Calcium 500-Vit D3 600 Tablet] 1 tab PO DAILY Gabapentin [Neurontin] 300 mg PO BID Norgestimate-Ethinyl Estradiol [Ortho Tri-Cyclen 28 Tablet] 1 tab PO DAILY Cholecalciferol (Vitamin D3) [Vitamin D3] 2,000 unit PO DAILY Discontinued Topiramate [Topamax] 50 mg PO BID ARIPiprazole [Abilify] 30 mg PO HS ALPRAZolam [Xanax] 0.5 mg PO BID PRN PRN Reason: Anxiety Topiramate [Topamax] 25 mg PO BID Levothyroxine Sodium [Synthroid] 112 mcg PO DAILY Citalopram Hydrobromide [CeleXA] 40 mg PO DAILY Discharge Medication List Calcium Carbonate/Vitamin D3 [Calcium 500-Vit D3 600 Tablet] 1 tab PO DAILY [History] Gabapentin [Neurontin] 300 mg PO BID 10/28/17 [History] Norgestimate-Ethinyl Estradiol [Ortho Tri-Cyclen 28 Tablet] 1 tab PO DAILY 10/28 [History] Cholecalciferol (Vitamin D3) [Vitamin D3] 2,000 unit PO DAILY 10/30/17 [History] ARIPiprazole [Abilify Maintena] 300 mg IM QMONTH #1 vial 11/01/17 [Rx] ARIPiprazole [Abilify] 20 mg PO DAILY #12 tab 11/01/17 [Rx] Famotidine [Pepcid] 20 mg PO BID #28 tab 11/01/17 [Rx] Ibuprofen [Motrin] 600 mg PO QID PRN #56 tab 11/01/17 [Rx] Levothyroxine Sodium [Synthroid] 176 mcg PO DAILY@0630 #56 tab 11/01/17 [Rx] hydrOXYzine PAMOATE [Vistaril] 25 mg PO Q6HR PRN #56 cap 11/01/17 [Rx] Follow up Appointment(s)/Referral(s): [facility] [Outside] - 11/02/17 2:00 pm (11/02/17 at 2pm with Connie 11/21/[address] Garibay ) Flip Garcia MD [Primary Care Provider] - 1-2 days Activity/Diet/Wound Care/Special Instructions: Pt is to follow up with outpatient in regards to her TSH it was 12.7 here and synthroid was increased to 175mcg daily during this admission. Activity and diet as tolerated. Avoid the use of street drugs and alcohol. Remove all firearms from the home. Take all medications as prescribed. Follow up with your Primary Care Physician in one to two days. When you are in need of refills on your medications please contact your medical provider and/or your outpatient psychiatrist to have this done. Please go to the scheduled outpatient appointment for aftercare. If symptoms return or become worse call the crisis line and/ or go the nearest emergency room for an evaluation. l Discharge Disposition: HOME SELF-CARE
[2017-11-01] MEDS: CHOLECALCIFEROL 1,000 UNIT TAB PO SCH (11:52)
== END 2017-11-01 13:27 | disposition home or self-care (01) | DRG 885 ==
LOC: EC 14:14 → 3MHU 18:46
PROVIDERS: ADMIT Psychiatry & Neurology Psychiatry; ATTEND Psychiatry & Neurology Psychiatry
DX: F25.0 Schizoaffective disorder, bipolar type (principal); R45.851 Suicidal ideations; D72.829 Elevated white blood cell count, unspecified; F12.90 Cannabis use, unspecified, uncomplicated; F43.10 Post-traumatic stress disorder, unspecified; F41.9 Anxiety disorder, unspecified; K21.9 Gastro-esophageal reflux disease without esophagitis; F17.200 Nicotine dependence, unspecified, uncomplicated; E28.2 Polycystic ovarian syndrome; M79.7 Fibromyalgia; H91.92 Unspecified hearing loss, left ear; Z62.810 Personal history of physical and sexual abuse in childhood; Z85.850 Personal history of malignant neoplasm of thyroid; Z79.899 Other long term (current) drug therapy; Z88.5 Allergy status to narcotic agent; Z88.2 Allergy status to sulfonamides; Z91.048 Other nonmedicinal substance allergy status; Z91.5 Personal history of self-harm; Z98.890 Other specified postprocedural states; Z79.3 Long term (current) use of hormonal contraceptives
CPT/HCPCS: 36415; 71046; 80048; 80306; 81001; 81025; 82075; 83520; 84443; 85025; 85027; 87086; 93005; 99285

== ENCOUNTER 2020-06-15 05:32 | Emergency (ER) | payer OTHER ==
[2020-06-15 05:42] VITALS: TEMP 98
[2020-06-15] MEDS ORDERED: CEPHALEXIN 500MG STARTER PACK 4 CAP BTL PO STA (05:43)
[2020-06-15] MEDS ORDERED: CEPHALEXIN 500 MG CAP PO STA (05:43)
[2020-06-15] MEDS ORDERED: LIDOCAINE 1%-EPI 1:100,000 20 ML VIAL SQ STA (05:43)
[2020-06-15] MEDS ORDERED: DIPH,PERTUS(ACELL)TETVAC-LF 0.5 ML VIAL IM ONE (05:43)
[2020-06-15] MEDS ORDERED: traMADol 50 MG STARTER PACK 3 TAB BTL PO STA (05:44)
[2020-06-15] MEDS ORDERED: traMADol 50 MG TAB PO STA (05:44)
--- NOTE | 2020-06-15 05:47 | ED ---
Wound/Laceration HPI - General Chief Complaint: Wound/Laceration Stated Complaint: Arm lac Source: patient, EMS, RN notes reviewed, old records reviewed Mode of arrival: EMS Limitations: no limitations - History of Present Illness Initial Comments: This is a 35-year-old female DF for evaluation patient Dese for evaluation of a fall trip and fall after waking up today she fell forward landing on fish tank fish tank was without Fish ground no water. Patient has no other injuries from this fall she sustained a laceration to her right wrist patient And had bleeding controlled prior to EMS arrival EMS brings patient in patient is moderately anxious secondary to both pain and the whole incident altogether. -: minutes(s) Extremity Location: Right: Wrist Place: home Patient Tetanus UTD: No Context: accidental Associated Symptoms: pain, loss of feeling/numbness - Related Data Home Medications Medication Instructions Recorded Confirmed Calcium Carbonate/Vitamin D3 1 tab PO DAILY 11/07/16 10/28/17 [Calcium 500-Vit D3 600 Tablet] Gabapentin [Neurontin] 300 mg PO BID 10/28/17 10/30/17 Norgestimate-Ethinyl Estradiol 1 tab PO DAILY 10/28/17 10/30/17 [Ortho Tri-Cyclen 28 Tablet] Cholecalciferol (Vitamin D3) 2,000 unit PO DAILY 10/30/17 10/30/17 [Vitamin D3] Previous Rx's Medication Instructions Recorded ARIPiprazole patients own 300 mg IM QMONTH #1 vial 11/01/17 [Abilify Maintena] ARIPiprazole [Abilify] 20 mg PO DAILY #12 tab 11/01/17 Famotidine [Pepcid] 20 mg PO BID #28 tab 11/01/17 Ibuprofen [Motrin] 600 mg PO QID PRN #56 tab 11/01/17 Levothyroxine Sodium [Synthroid] 176 mcg PO DAILY@0630 #56 tab 11/01/17 hydrOXYzine pamoate [Vistaril] 25 mg PO Q6HR PRN #56 cap 11/01/17 Allergies Allergy/AdvReac Type Severity Reaction Status Date / Time aspartame Allergy Unknown Verified 06/15/20 05:42 Penicillins Allergy Rash/Hives Verified 06/15/20 05:42 red dye Allergy Unknown Verified 06/15/20 05:42 Sulfa (Sulfonamide Allergy Rash/Hives Verified 06/15/20 05:42 Antibiotics) codeine AdvReac Nausea & Verified 06/15/20 05:42 Vomiting Review of Systems ROS Statement: Those systems with pertinent positive or pertinent negative responses have been documented in the HPI. ROS Other: All systems not noted in ROS Statement are negative. Past Medical History Past Medical History: GERD/Reflux, Thyroid Disorder Additional Past Medical History / Comment(s): thyroid cancer. History of Any Multi-Drug Resistant Organisms: None Reported Additional Past Surgical History / Comment(s): thyroid Past Psychological History: Anxiety, Bipolar, Depression, PTSD Smoking Status: Current every day smoker Past Alcohol Use History: Occasional Past Drug Use History: Marijuana General Exam Limitations: no limitations General appearance: alert, in no apparent distress Head exam: Present: atraumatic, normocephalic, normal inspection Eye exam: Present: normal appearance, PERRL, EOMI. Absent: scleral icterus, conjunctival injection, periorbital swelling ENT exam: Present: normal exam, mucous membranes moist Neck exam: Present: normal inspection. Absent: tenderness, meningismus, lymphadenopathy Respiratory exam: Present: normal lung sounds bilaterally. Absent: respiratory distress, wheezes, rales, rhonchi, stridor Cardiovascular Exam: Present: regular rate, normal rhythm, normal heart sounds. Absent: systolic murmur, diastolic murmur, rubs, gallop, clicks GI/Abdominal exam: Present: soft, normal bowel sounds. Absent: distended, tenderness, guarding, rebound, rigid Extremities exam: Present: normal inspection, full ROM, normal capillary refill. Absent: tenderness, pedal edema, joint swelling, calf tenderness Right General: Present: laceration (3-4 cm laceration half-munguia right wrist) Shoulder Exam: Present: normal inspection, full ROM Upper Arm exam: Present: normal inspection, full ROM Elbow exam: Present: normal inspection, full ROM Forearm Wrist exam: Present: normal inspection, full ROM Hand Wrist exam: Present: laceration (Same as above) Neuro motor exam: Present: wrist extension intact, thumb opposition intact, thumb IP flexion intact, thumb adduction intact, fingers 2-5 abduction intact Neurosensory exam: Present: radial nerve intact, ulnar nerve intact, median nerve intact Vascular: Present: normal capillary refill, radial pulse, brachial pulse, ulnar pulse Back exam: Present: normal inspection Neurological exam: Present: alert, oriented X3, CN II-XII intact Psychiatric exam: Present: normal affect, normal mood Skin exam: Present: warm, dry, intact, normal color. Absent: rash Course Vital Signs 06/15/20 05:34 Temperature 98.0 F Pulse Rate 74 Respiratory 20 Rate Blood Pressure 111/69 O2 Sat by Pulse 100 Oximetry - Reevaluation(s) Reevaluation #1: 06/15/20 05:47 Medical record is reviewed Reevaluation #2: 06/15/20 06:30 Patient tolerated sutures without difficulty Reevaluation #3: 06/15/20 06:30 Wound is bandaged and cleaned Procedures - Laceration Laceration #1 Consent Obtained: verbal consent Indication: laceration Size (cm): 5 Description: linear (half munguia) Depth: simple, single layer Anesthetic Used: lidocaine 1%, with epi Anesthesia Technique: local infiltration Pre-repair: wound explored, irrigated extensively Type of Sutures: nylon Size of Sutures: 4-0 Technique: simple, interrupted Patient Tolerated Procedure: well Medical Decision Making - Radiology Data Radiology results: report reviewed (X-ray right wrist may include foreign bodies but no fracture), image reviewed Disposition Clinical Impression: Fall, Laceration of right wrist Disposition: HOME SELF-CARE Condition: Good Instructions (If sedation given, give patient instructions): Laceration (ED), Care For Your Stitches (ED) Is patient prescribed a controlled substance at d/c from ED?: No Referrals: Flip Garcia MD [Primary Care Provider] - 1-2 days
--- NOTE | 2020-06-15 06:23 | XR ---
EXAM: XR Right Wrist Complete, 3 or More Views CLINICAL HISTORY: ITS.REASON XR Reason: FB TECHNIQUE: Frontal, lateral and oblique views of the right wrist. COMPARISON: none available FINDINGS: Bones/joints: Unremarkable. No acute fracture. No dislocation. Soft tissues: Laceration overlying the medial distal forearm with multiple tiny linear superficial densities in the subcutaneous tissues, largest of which overlies the distal ulnar metaphysis measuring up to 3mm. No radiopaque foreign body. IMPRESSION: Laceration overlying the medial distal forearm with multiple tiny linear superficial densities in the subcutaneous tissues measuring up to 3mm which may represent small retained foreign bodies. No acute fracture or traumatic malalignment to the right wrist.
[2020-06-15 06:46] VITALS: BP 101/60; PULSE 69; RESP 18
== END 2020-06-15 06:47 | disposition home or self-care (01) ==
LOC: EC 05:32
DX: S61.511A Laceration without foreign body of right wrist, initial encounter (principal); Z23 Encounter for immunization; F17.200 Nicotine dependence, unspecified, uncomplicated; Z88.5 Allergy status to narcotic agent; Z88.2 Allergy status to sulfonamides; Z91.048 Other nonmedicinal substance allergy status; Z88.0 Allergy status to penicillin; Z79.3 Long term (current) use of hormonal contraceptives; Z85.850 Personal history of malignant neoplasm of thyroid; W01.0XXA Fall on same level from slipping, tripping and stumbling without subsequent striking against object, initial encounter; Y93.89 Activity, other specified; Y92.009 Unspecified place in unspecified non-institutional (private) residence as the place of occurrence of the external cause
CPT/HCPCS: 12002; 90471; 90715; 99284

== ENCOUNTER 2021-03-23 14:44 | Emergency (ER) | payer OTHER ==
[2021-03-23 14:53] VITALS: TEMP 97.9
[2021-03-23] MEDS ORDERED: KETOROLAC 15 MG/ML 1 ML VIAL IM STA (15:31)
--- NOTE | 2021-03-23 16:57 | US ---
EXAMINATION TYPE: US venous doppler duplex LE LT DATE OF EXAM: 03/23/2021 4:14 PM COMPARISON: NONE CLINICAL HISTORY: left calf pain. SIDE PERFORMED: Left TECHNIQUE: The lower extremity deep venous system is examined utilizing real time linear array sonog nabeel with graded compression, doppler sonography and color-flow sonography. VESSELS IMAGED: Common Femoral Vein Deep Femoral Vein Greater Saphenous Vein * Femoral Vein Popliteal Vein Small Saphenous Vein * Proximal Calf Veins (* superficial vessels) Left Leg: Negative for DVT IMPRESSION: No evidence of deep vein thrombosis in the left leg.
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
[2021-03-23 17:44] VITALS: BP 113/74; PULSE 87; RESP 18
== END 2021-03-23 17:42 | disposition home or self-care (01) ==
LOC: EC 14:44
DX: M79.662 Pain in left lower leg (principal); M62.838 Other muscle spasm; K21.9 Gastro-esophageal reflux disease without esophagitis; E07.9 Disorder of thyroid, unspecified; F41.9 Anxiety disorder, unspecified; F31.9 Bipolar disorder, unspecified; F43.12 Post-traumatic stress disorder, chronic; F17.200 Nicotine dependence, unspecified, uncomplicated; F12.90 Cannabis use, unspecified, uncomplicated; Z88.0 Allergy status to penicillin; Z88.2 Allergy status to sulfonamides; Z88.5 Allergy status to narcotic agent; Z85.850 Personal history of malignant neoplasm of thyroid; Z65.3 Problems related to other legal circumstances
CPT/HCPCS: 99283; 96372; 93971; J1885

== ENCOUNTER → 2021-12-24 | Outpatient (CLI) | payer OTHER ==
--- NOTE | 2021-12-24 15:06 | US ---
EXAMINATION TYPE: US pelvic complete DATE OF EXAM: 12/24/2021 COMPARISON: NONE CLINICAL HISTORY: R10.2 PELVIC AND PERINEAL PAIN. Patient states she randomly voids herself. TECHNIQUE: Transabdominal (TA). Transabdominal sonographic images of the pelvis were acquired. Date of LMP: Unknown due to Depo shot, EXAM MEASUREMENTS: Uterus: 8.6 x 5.2 x 4.0 cm Endometrial Stripe: 0.6 cm Right Ovary: 3.9 x 1.9 x 2.4 cm Left Ovary: 3.9 x 1.8 x 2.8 cm 1. Uterus: Anteverted wnl 2. Endometrium: wnl 3. Right Ovary: There is a right ovarian cyst measuring 2.0 x 1.6 cm 4. Left Ovary: follicles 5. Bilateral Adnexa: wnl 6. Posterior cul-de-sac: free fluid IMPRESSION: 1. Minimal free fluid within the cul-de-sac can be physiologic. 2. Right ovarian cyst
== END | disposition home or self-care (01) ==
LOC: RADUSWWP 14:18
PROVIDERS: ATTEND Pediatrics
DX: N83.201 Unspecified ovarian cyst, right side (principal)
CPT/HCPCS: 76856

== ENCOUNTER → 2022-05-18 | Outpatient (CLI) | payer OTHER ==
--- NOTE | 2022-05-18 14:31 | US ---
EXAMINATION TYPE: US pelvic complete DATE OF EXAM: 05/18/2022 COMPARISON: 12/24/2021 CLINICAL HISTORY: N83.201 RIGHT OVARIAN CYST. History of right ovarian cyst. Depo shot. pelvic pain TECHNIQUE: Transabdominal (TA). Date of LMP: unknown EXAM MEASUREMENTS: Uterus: 8.5 x 4.4 x 5.3 cm Endometrial Stripe: 0.5 cm Right Ovary: 3.7 x 2.4 x 2.9 cm Left Ovary: 2.8 x 2.7 x 1.7 cm 1. Uterus: Anteverted wnl 2. Endometrium: wnl 3. Right Ovary: cystic area = 2.0 x 2.7 x 1.6cm. Previous right ovarian cyst measured 2.0 x 1.6 cm. 4. Left Ovary: follicles noted 5. Bilateral Adnexa: wnl 6. Posterior cul-de-sac: wnl IMPRESSION: 1. Right ovarian cyst. Follow-up exam in 6 weeks is recommended.
== END | disposition home or self-care (01) ==
LOC: RADUSWWP 13:49
PROVIDERS: ATTEND Pediatrics
DX: N83.201 Unspecified ovarian cyst, right side (principal)
CPT/HCPCS: 76856

== ENCOUNTER → 2022-08-24 | Outpatient (CLI) | payer OTHER ==
--- NOTE | 2022-08-25 07:23 | US ---
EXAMINATION TYPE: US pelvic complete DATE OF EXAM: 08/24/2022 COMPARISON: 05/18/2022 CLINICAL HISTORY: Z48.89 ENCOUNTER FOR OTHER SPECIFIED SURGICAL AFTER. IUD insertion June 2022 TECHNIQUE: Transabdominal sonographic images of the pelvis were acquired. Transvaginal sonographic images were medically necessary to better assess the following anatomy: Endometrium. Date of LMP: 04/23/2022-Ongoing EXAM MEASUREMENTS: Uterus: 7.0 x 3.3 x 4.7 cm Endometrial Stripe: 0.84 cm Right Ovary: 2.6 x 1.5 x 1.6 cm Left Ovary: 2.9 x 1.9 x 2.2 cm 1. Uterus: Anteverted wnl 2. Endometrium: IUD visualized appropriately. 3. Right Ovary: wnl 4. Left Ovary: complex follicle 1.0 x 1.1 x 1.4cm likely representing a hemorrhagic follicle. 5. Bilateral Adnexa: wnl 6. Posterior cul-de-sac: wnl IMPRESSION: IUD within the endometrium. Evaluation for prong placement is limited due to technique.
== END | disposition home or self-care (01) ==
LOC: RADUSWWP 16:06
PROVIDERS: ATTEND Obstetrics & Gynecology
DX: Z48.89 Encounter for other specified surgical aftercare (principal); Z97.5 Presence of (intrauterine) contraceptive device
CPT/HCPCS: 76830; 76856

== ENCOUNTER 2023-10-01 16:10 | Emergency (ER) | payer OTHER ==
[2023-10-01 16:31] VITALS: RESP 18
[2023-10-01 16:57] LABS: Appearance,Urine Turbid (Clear); Bacteria,Urine Moderate /hpf; Bilirubin,Urine Negative (Negative); Blood,Urine Large (Negative); Color,Urine Yellow; Glucose,Urine (UA) Negative (Negative); Ketones,Urine Negative (Negative); Leukocyte Esterase,Urine Large (Negative); Mucus,Urine Rare /hpf; Nitrite,Urine Negative (Negative); Protein,Urine 1+ (Negative); RBC,Urine 135 /hpf (0-5); Specific Gravity,Urine 1.015 (1.001-1.035); Squamous Epithelial Cell,Urine 5 /hpf (0-4); WBC,Urine >182 /hpf (0-5)
[2023-10-01 16:59] LABS: Amphetamine Screen,Urine Detected (NotDetected); Barbiturate Screen,Urine Not Detected (NotDetected); Benzodiazepines Screen,Urine Not Detected (NotDetected); Cocaine Screen,Urine Not Detected (NotDetected); Methadone Screen, Urine Not Detected (NotDetected); Opiate Screen,Urine Not Detected (NotDetected); Oxycodone Screen, Urine Not Detected (NotDetected); Phencyclidine Screen,Urine Not Detected (NotDetected); Tricyclic Antidepressant,Urine Not Detected (NotDetected); Urn Cannabinoid Scrn Detected (NotDetected)
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
[2023-10-01] MEDS: LIDOCAINE/EPINEPHR/TETRACAINE 5 ML BOTTLE TOPICAL ONE (18:34)
[2023-10-01] MEDS: DIPH,PERTUS(ACELL)TETVAC-LF 0.5 ML VIAL IM ONE (18:36)
[2023-10-01 19:09] VITALS: TEMP 98.6
[2023-10-01] MEDS: AZITHROMYCIN 250 MG TAB PO STA (19:49)
[2023-10-01] MEDS: cefTRIAXone 250 MG VIAL IM STA (19:50)
[2023-10-01 22:26] VITALS: BP 96/63; PULSE 71
[2023-10-02 14:26] LABS: C. trachomatis,PCR Positive (Negative); N. gonorrhoeae,PCR Positive (Negative)
== END 2023-10-01 22:13 | disposition home or self-care (01) ==
LOC: EC 16:10
DX: S01.01XA Laceration without foreign body of scalp, initial encounter (principal); N39.0 Urinary tract infection, site not specified; F17.200 Nicotine dependence, unspecified, uncomplicated; F12.90 Cannabis use, unspecified, uncomplicated; Z88.0 Allergy status to penicillin; Z88.5 Allergy status to narcotic agent; Z88.2 Allergy status to sulfonamides; Z91.041 Radiographic dye allergy status; Z88.8 Allergy status to other drugs, medicaments and biological substances; Z88.1 Allergy status to other antibiotic agents; Y04.8XXA Assault by other bodily force, initial encounter
CPT/HCPCS: 81001; 81025; 87491; 87591; 80306; 73610; 72125; 70450; 90715; 12001; 99285; 90471; 96372; J0696

== ENCOUNTER → 2024-01-17 | Outpatient (CLI) | payer OTHER | END | disposition home or self-care (01) | LOC: LABWHC1 11:10 | PROVIDERS: ATTEND Psychiatry & Neurology Neurology | DX: I49.9 Cardiac arrhythmia, unspecified (principal) ==

== ENCOUNTER 2024-05-17 14:22 | Emergency (ER) | payer OTHER ==
--- NOTE | 2024-05-17 14:33 | ED ---
Headache HPI - General Source: patient, RN notes reviewed Mode of arrival: ambulatory Limitations: no limitations <Ying Monroe - Last Filed: 05/17/24 14:32> - General Source: patient, RN notes reviewed <Shabnam Zeng - Last Filed: 05/17/24 18:35> - General Stated Complaint: migraine/post op injection Time Seen by Provider: 05/17/24 14:32 - History of Present Illness Initial Comments: Quick note: 39-year-old female presenting to the ER with a chief complaint of a migraine. Patient does report a history of migraines and lumbar fusions. She underwent an epidural on Monday for pain. She states since then she has been having a nonstop migraine waking her up out of her sleep. She does have a history of fibromyalgia. She states today she did have an episode of emesis. No fevers. (Ying Monroe) 39-year-old female presenting to the ER with headache x 2 days. States she underwent an epidural 2 days ago for fibromyalgia. Since the epidural, states she has had constant migraine that feels like her "brain is being squeezed". Admits nausea and episode of vomiting this morning. She is sensitive to lights. Denies fevers, chills. She does have a history of migraines. (Shabnam Zeng) - Related Data Home Medications Medication Instructions Recorded Confirmed Gabapentin [Neurontin] 300 mg PO TID 10/28/17 03/23/21 ARIPiprazole [Abilify] 30 mg PO DAILY 03/23/21 03/23/21 Citalopram Hydrobromide 40 mg PO DAILY 03/23/21 03/23/21 [Citalopram HBr] Levothyroxine Sodium [Synthroid] 125 mcg PO DAILY 03/23/21 03/23/21 clonazePAM [KlonoPIN] 1 mg PO BID 03/23/21 03/23/21 medroxyPROGESTERone [Depo-Provera] 150 mg IM Q90D 03/23/21 03/23/21 Previous Rx's Medication Instructions Recorded Cyclobenzaprine [Flexeril] 5 mg PO TID PRN #15 tablet 03/23/21 Cephalexin [Keflex] 500 mg PO Q12HR 10 Days #20 cap 10/01/23 Ketorolac [Toradol] 10 mg PO Q8HR #15 tab 05/17/24 Allergies Allergy/AdvReac Type Severity Reaction Status Date / Time aspartame Allergy Unknown Verified 05/17/24 14:44 Penicillins Allergy Rash/Hives Verified 05/17/24 14:44 red dye Allergy Unknown Verified 05/17/24 14:44 Sulfa (Sulfonamide Allergy Rash/Hives Verified 05/17/24 14:44 Antibiotics) codeine AdvReac Nausea & Verified 05/17/24 14:44 Vomiting Review of Systems ROS Other: All systems not noted in ROS Statement are negative. <Ying Monroe - Last Filed: 05/17/24 14:32> ROS Other: All systems not noted in ROS Statement are negative. <Shabnam Zeng - Last Filed: 05/17/24 18:35> ROS Statement: Those systems with pertinent positive or pertinent negative responses have been documented in the HPI. Past Medical History Past Medical History: GERD/Reflux, Thyroid Disorder Additional Past Medical History / Comment(s): thyroid cancer. History of Any Multi-Drug Resistant Organisms: None Reported Additional Past Surgical History / Comment(s): thyroid Past Psychological History: Anxiety, Bipolar, Depression, PTSD Smoking Status: Current every day smoker Past Alcohol Use History: Occasional Past Drug Use History: Marijuana <Ying Monroe - Last Filed: 05/17/24 14:32> General Exam <Ying Monroe - Last Filed: 05/17/24 14:32> General appearance: alert, in no apparent distress Head exam: Present: atraumatic, normocephalic, normal inspection Eye exam: Present: normal appearance, PERRL, EOMI. Absent: scleral icterus, conjunctival injection, periorbital swelling ENT exam: Present: normal exam, mucous membranes moist Neck exam: Present: normal inspection. Absent: tenderness, meningismus, lymphadenopathy Respiratory exam: Present: normal lung sounds bilaterally. Absent: respiratory distress, wheezes, rales, rhonchi, stridor Cardiovascular Exam: Present: regular rate, normal rhythm, normal heart sounds. Absent: systolic murmur, diastolic murmur, rubs, gallop, clicks Neurological exam: Present: alert, oriented X3, CN II-XII intact Psychiatric exam: Present: normal affect, normal mood Skin exam: Present: warm, dry, intact, normal color. Absent: rash <Shabnam Zeng - Last Filed: 05/17/24 18:35> - General Exam Comments Initial Comments: Visual Physical Exam Vital signs reviewed General: Well-appearing, nontoxic, no acute distress. Head: Normocephalic, atraumatic Eyes: PERRLA, EOMI ENT: Airway patent Chest: Nonlabored breathing Skin: No visual rash, normal skin tone Neuro: Alert and oriented 3 Musculoskeletal: No gross abnormalities (Ying Monroe) Course Vital Signs 05/17/24 14:44 Temperature 98.4 F Pulse Rate 89 Respiratory 18 Rate Blood Pressure 133/87 O2 Sat by Pulse 99 Oximetry Medical Decision Making <Ying Monroe - Last Filed: 05/17/24 14:32> - Lab Data Result diagrams: 05/17/24 15:34 05/17/24 15:34 <Shabnam Zeng - Last Filed: 05/17/24 18:35> - Medical Decision Making I performed the quick note portion of this chart. Electronically signed by Ying Monroe PA-C (Ying Monroe) Was pt. sent in by a medical professional or institution ([facility] [place], OCC MED PHYSICIAN, urgent care, hospital, or fci...) When possible be specific @ -No Did you speak to anyone other than the patient for history (EMS, parent, family, police, friend...)? What history was obtained from this source @ -No Did you review nursing and triage notes (agree or disagree)? Why? @ -I reviewed and agree with nursing and triage notes Were old charts reviewed (outside hosp., previous admission, EMS record, old EKG, old radiological studies, urgent care reports/EKG's, fci records)? Report findings @ -No old charts were reviewed Differential Diagnosis (chest pain, altered mental status, abdominal pain women, abdominal pain men, vaginal bleeding, weakness, fever, dyspnea, syncope, headache, dizziness, GI bleed, back pain, seizure, CVA, palpatations, mental health, musculoskeletal)? @ -Differential Headache: Migraine, tension, cluster, carbon monoxide, central venous thrombosis, pension karma temporal arteritis, acute closure glaucoma, intercranial hemorrhage, mastoiditis, sinusitis, head injury, this is not meant to be an all-inclusive list. EKG interpreted by me (3pts min.). @ -None X-rays interpreted by me (1pt min.). @ -None done CT interpreted by me (1pt min.). @ -CT brain revealed no acute process U/S interpreted by me (1pt. min.). @ -None done What testing was considered but not performed or refused? (CT, X-rays, U/S, labs)? Why? @ -None What meds were considered but not given or refused? Why? @ -None Did you discuss the management of the patient with other professionals (professionals i.e. , PA, OCC MED PHYSICIAN, lab, RT, psych nurse, psych social worker, curing bin operator, teacher, tactical intelligence officer, wrapper caser)? Give summary @ -No Was smoking cessation discussed for >3mins.? @ -No Was critical care preformed (if so, how long)? @ -No Were there social determinants of health that impacted care today? How? (Homelessness, low income, unemployed, alcoholism, drug addiction, transportation, low edu. Level, literacy, decrease access to med. care, residential, rehab)? @ -No Was there de-escalation of care discussed even if they declined (Discuss DNR or withdrawal of care, Hospice)? DNR status @ -No What co-morbidities impacted this encounter? (DM, HTN, Smoking, COPD, CAD, Cancer, CVA, ARF, Chemo, Hep., AIDS, mental health diagnosis, sleep apnea, morbid obesity)? @ -None Was patient admitted / discharged? Hospital course, mention meds given and route, prescriptions, significant lab abnormalities, going to OR and other pert inent info. @ -Discharged. This is a 39-year-old female presenting with headache x 2 days status post epidural 2 days ago for fibromyalgia. Vital signs within acceptable limits. Neurological examination is unremarkable. Patient is provided with IV fluids and analgesics. Lab including CBC, CMP remarkable for white blood cell count [address] brain reveals no acute process. Upon reevaluation, patient reports symptoms have improved and feels stable for discharge. I believe it is safe for patient to be discharged home with close neurology follow-up and return precautions. Strict red flag symptoms discussed with patient and she conveys understanding and agrees to plan. Prescribed Toradol to pharmacy. Case was discussed with my ED attending Dr. Potter. Jo Ann hall discharged in stable condition. Undiagnosed new problem with uncertain prognosis? @ -No Drug Therapy requiring intensive monitoring for toxicity (Heparin, Nitro, Insulin, Cardizem)? @ -No Were any procedures done? @ -No Diagnosis/symptom? @ -Headache Acute, or Chronic, or Acute on Chronic? @ -Acute Uncomplicated (without systemic symptoms) or Complicated (systemic symptoms)? @ -Uncomplicated Side effects of treatment? @ -No Exacerbation, Progression, or Severe Exacerbation? @ -No Poses a threat to life or bodily function? How? (Chest pain, [place], [place], pneumonia, PE, COPD, DKA, ARF, appy, cholecystitis, CVA, Diverticulitis, Homicidal, Suicidal, threat to staff... and all critical care pts) @ -Not at this time (Shabnam Zeng) - Lab Data Lab Results 05/17/24 05/17/24 Range/Units 15:34 15:34 WBC 13.0 H (3.8-10.6) k/uL RBC 5.26 (3.80-5.40) m/uL Hgb 16.3 H (11.4-16.0) gm/dL Hct 50.3 H (34.0-46.0) % MCV 95.8 (80.0-100.0) fL MCH 31.0 (25.0-35.0) pg MCHC 32.4 (31.0-37.0) g/dL RDW 12.2 (11.5-15.5) % Plt Count 305 (150-450) k/uL MPV 7.8 Neutrophils % 67 % Lymphocytes % 23 % Monocytes % 6 % Eosinophils % 2 % Basophils % 0 % Neutrophils # 8.7 H (1.3-7.7) k/uL Lymphocytes # 3.0 (1.0-4.8) k/uL Monocytes # 0.8 (0-1.0) k/uL Eosinophils # 0.3 (0-0.7) k/uL Basophils # 0.0 (0-0.2) k/uL Sodium 141 (137-145) mmol/L Potassium 4.2 (3.5-5.1) mmol/L Chloride 107 (98-107) mmol/L Carbon Dioxide 26 (22-30) mmol/L Anion Gap 8 mmol/L BUN 9 (7-17) mg/dL Creatinine 0.75 (0.52-1.04) mg/dL Est GFR (CKD-EPI)AfAm >90 (>60 ml/min/1.73 sqM) Est GFR (CKD-EPI)NonAf >90 (>60 ml/min/1.73 sqM) Glucose 92 (74-99) mg/dL Calcium 9.8 (8.4-10.2) mg/dL Total Bilirubin 0.5 (0.2-1.3) mg/dL AST 27 (14-36) U/L ALT 21 (4-34) U/L Alkaline Phosphatase 80 (38-126) U/L Total Protein 7.6 (6.3-8.2) g/dL Albumin 4.7 (3.5-5.0) g/dL Disposition <Ying Monroe - Last Filed: 05/17/24 14:32> Is patient prescribed a controlled substance at d/c from ED?: No Time of Disposition: 18:31 <Shabnam Zeng - Last Filed: 05/17/24 18:35> Clinical Impression: Headache Disposition: HOME SELF-CARE Condition: Stable Instructions (If sedation given, give patient instructions): Acute Headache (ED) Additional Instructions: Follow-up with neurology as discussed. Please return to the Emergency Department if symptoms worsen or any other concerns. Prescriptions: Ketorolac [Toradol] 10 mg PO Q8HR #15 tab Referrals: Virginia Carter PAC [REFERRING] - 1-2 days
[2024-05-17 14:46] VITALS: RESP 18; TEMP 98.4
[2024-05-17 15:52] LABS: Basophils % (A) 0 %; Eosinophils # (A) 0.3 k/uL (0-0.7); Eosinophils % (A) 2 %; HCT 50.3 % (34.0-46.0); HGB 16.3 gm/dL (11.4-16.0); Lymphocytes % (A) 23 %; MCHC 32.4 g/dL (31.0-37.0); MCV 95.8 fL (80.0-100.0); Mean Platelet Volume 7.8; Monocytes # (A) 0.8 k/uL (0-1.0); Monocytes % (A) 6 %; Neutrophils # (A) 8.7 k/uL (1.3-7.7); Neutrophils % (A) 67 %; Platelet Count 305 k/uL (150-450); RBC 5.26 m/uL (3.80-5.40); RDW 12.2 % (11.5-15.5)
[2024-05-17 16:09] LABS: ALT 21 U/L (4-34); AST 27 U/L (14-36); African American GFR (CKD) >90 (>60 ml/min/1.73 sqM); Albumin 4.7 g/dL (3.5-5.0); Alkaline Phosphatase 80 U/L (38-126); Anion Gap 8 mmol/L; Blood Urea Nitrogen 9 mg/dL (7-17); Calcium 9.8 mg/dL (8.4-10.2); Carbon Dioxide 26 mmol/L (22-30); Chloride 107 mmol/L (98-107); Glucose 92 mg/dL (74-99); Non-African American GFR(CKD) >90 (>60 ml/min/1.73 sqM); Potassium 4.2 mmol/L (3.5-5.1); Sodium 141 mmol/L (137-145); Total Bilirubin 0.5 mg/dL (0.2-1.3); Total Protein 7.6 g/dL (6.3-8.2)
[2024-05-17] MEDS: ACETAMINOPHEN TAB 500 MG TAB PO STA (16:37)
[2024-05-17] MEDS: METOCLOPRAMIDE 5 MG/ML 2 ML VIAL IVP STA (16:37)
[2024-05-17] MEDS: SODIUM CHLORIDE 0.9% 1,000 ML IV STA (16:44)
--- NOTE | 2024-05-17 17:34 | CT ---
EXAMINATION TYPE: CT brain wo con DATE OF EXAM: 05/17/2024 COMPARISON: 10/01/2023 HISTORY: 39-year-old female headache x 2 days TECHNIQUE: Examination was done in axial plane without intravenous contrast. Coronal and sagittal r econstructions performed. CT DLP: 1095.9 mGycm Automated exposure control for dose reduction was used. FINDINGS: There is no evidence of acute intracranial hemorrhage, acute ischemic changes, mass, mass-effect, or extra-axial fluid collection. There is no effacement of cerebral sulci or basal subarachnoid cister ns. There is no hydrocephalus. There is no midline shift. Mendez-white matter distinction is preserv ed. Orbits and globes are intact. There is mucosal thickening right maxillary sinus. Mastoid air cells ar e pneumatized. IMPRESSION: No acute intracranial abnormality seen. [facility], , 05/17/2024 5:31 PM
[2024-05-17] MEDS: KETOROLAC 15 MG/ML 1 ML VIAL IVP STA (17:57)
[2024-05-17] MEDS: HYDROmorphone 0.5 MG/0.5 ML SYRINGE IVP STA (18:53)
[2024-05-17] MEDS: CAFFEINE-SODIUM BENZOATE 1,000 MG in SODIUM CHLORIDE 0.9% 1,000 ML IVPB ONE (18:54)
[2024-05-17 19:56] VITALS: BP 125/83; PULSE 61
== END 2024-05-17 19:52 | disposition home or self-care (01) ==
LOC: EC 14:22
CPT/HCPCS: 36415; 70450; 80053; 85025; 96361; 96365; 96375; 99284